=== PATIENT | male | born 1950 | race Caucasian/White ===

== ENCOUNTER 2019-01-22 08:12 | Day surgery (SDC) | payer MEDICARE ==
[~2019-01-22] VITALS: Ht 170.2 cm; Wt 83.5 kg
[~2019-01-22 08:12] MED LIST: AMLO10 PO; ASPI325 PO; ASPI81CH PO; ATOR40TA PO; CILO100 PO; CLOP75 PO; ESBRIET267 MG PO; HYDCHL12.5 PO; ISOMON30 PO; ISOMON60ER PO; Isosorbide Mono60 MG PO; LISHYD2012 PO; LISI20 PO; LOSA25 PO; METO25ER PO; METOPROLOL TARTRATE PO; Nitrostat0.4 MG SL; Prilosec Otc20 MG PO; RANO500T PO; ROSU10TA PO; VERA180ER PO
--- NOTE | 2019-01-22 08:57 | NUR ---
History, Chart, Medications and Allergies reviewed before start of procedure. Patient confirms NPO status and agrees with scheduled surgery. Patient States Post-Procedure ride home has been arranged with his .
--- NOTE | 2019-01-22 12:39 | NUR ---
1200: 1 NORCO GIVEN PER ORDERS. Discharge instructions reviewed with patient. Patient verbalizes understanding. Copy given to patient to take home. Ice pack given to pt for ice therapy. Incentive Spirometer given to pt and teaching done on how to use, demonstrated understanding. SPO2 ranges 92-93% on RA, improves with cough and deep breathing. Abdominal incision CDI with abd binder in place.
== END 2019-01-22 12:46 | disposition home or self-care (01) ==
LOC: ORSCMMR 08:12 → ORD 09:45 → ORSCMMR 12:46
PROVIDERS: Surgery
PROC: 0WUF0JZ Supplement Abdominal Wall with Synthetic Substitute, Open Approach (ICD-10-PCS; principal; 2019-01-22 09:45)
DX: K43.0 Incisional hernia with obstruction, without gangrene (principal); I10 Essential (primary) hypertension; I25.10 Atherosclerotic heart disease of native coronary artery without angina pectoris; Z87.891 Personal history of nicotine dependence; Z79.82 Long term (current) use of aspirin; Z79.899 Other long term (current) drug therapy
CPT/HCPCS: A9270-GY; C1781; J0690; J2250; J2704; J3010; J7120

== ENCOUNTER → 2019-03-06 | Outpatient (CLI) | payer MEDICARE | END | disposition home or self-care (01) | LOC: LAB EV 11:24 | DX: J06.9 Acute upper respiratory infection, unspecified (principal) | CPT/HCPCS: 87070; 87205 ==